=== PATIENT | female | born 1985 | race Asian ===

== ENCOUNTER 2016-08-07 02:23 | Inpatient (IN) | payer SELFPAY ==
[~2016-08-07] VITALS: Ht 157.5 cm; Wt 71.7 kg
[2016-08-07] MEDS ORDERED: NALBUPHINE HYDROCHLORIDE 10 MG/ML VIAL IVP PRN (02:45)
[2016-08-07] MEDS ORDERED: LACTATED RINGERS 500 ML IV ONE (02:45)
[2016-08-07] MEDS ORDERED: PROMETHAZINE 25 MG/ML VIAL IVP PRN (02:45)
[2016-08-07] MEDS ORDERED: AMPICILLIN 2,000 MG in NACL 0.9% MINI-BAG PLUS 100 ML IV SCH (02:45)
[2016-08-07] MEDS ORDERED: OXYTOCIN 10 UNITS/ML VIAL IM SCH (02:45)
[2016-08-07] MEDS ORDERED: IRON65TA11 PO (02:45)
[2016-08-07] MEDS ORDERED: METHYLERGONOVINE 0.2 MG/ML AMP IM PRN ×2 (02:45→07:10)
[2016-08-07] MEDS ORDERED: CARBOPROST 250 MCG/ML AMP IM PRN (02:45)
[2016-08-07] MEDS: LACTATED RINGERS 1,000 ML IV SCH ×2 (03:07→04:09)
[2016-08-07] MEDS ORDERED: AMPICILLIN 2,000 MG VIAL ONE (03:10)
[2016-08-07 03:21] LABS: BASOPHILS # (AUTO) 0.2 K/uL (0.00-0.22); BASOPHILS % (AUTO) 1.4 % (0.0-2.0); EOSINOPHILS # (AUTO) 0.3 K/uL (0-0.4); EOSINOPHILS % (AUTO) 2.2 % (0.0-4.0); HEMATOCRIT 38.1 % (36-48); HEMOGLOBIN 12.2 g/dL (12.0-16.0); LYMPHOCYTES # (AUTO) 2.6 K/uL (2.5-16.5); MEAN CORPUSCULAR HEMOGLOBIN 28 pg (27-31); MEAN CORPUSCULAR HGB CONC 32 g/dL (33-37); MEAN CORPUSCULAR VOLUME 88 fL (80-94); MONOCYTES # (AUTO) 0.7 K/uL (0.8-1.0); MONOCYTES % (AUTO) 5.8 % (1.7-9.3); NEUTROPHILS % (AUTO) 70.6 % (42.2-75.2); PLATELET COUNT (AUTO) 231 K/uL (140-450); RED BLOOD CELL COUNT(AUTO) 4.32 MIL/uL (4.20-5.40); RED CELL DISTRIBUTION WIDTH 20.1 % (11.6-13.7); WHITE BLOOD COUNT (AUTO) 12.8 K/uL (4.8-10.8)
[2016-08-07 03:25] VITALS: BP 110/70
[2016-08-07 03:32] LABS: ANION GAP 13.5 (8-16); CALCIUM 8.9 mg/dL (8.5-10.1); CARBON DIOXIDE 24.3 mmol/L (21-32); CREATININE 0.6 mg/dL (0.6-1.3); POTASSIUM 3.8 mmol/L (3.5-5.1)
[2016-08-07] MEDS ORDERED: ROPIVACAINE 0.2%/NS PREMIX 250 ML EPI ONE (03:37)
[2016-08-07 03:41] LABS: HIV RAPID SCREEN NON-REACTIVE (NON REACTIV)
[2016-08-07 03:43] LABS: ALBUMIN 2.6 g/dL (3.4-5.0); TOTAL BILIRUBIN 0.5 mg/dL (0.0-1.0); TOTAL PROTEIN, SERUM 6.5 g/dL (6.4-8.2)
[2016-08-07] MEDS ORDERED: ROPIVACAINE 0.2%/NS PREMIX 250 ML EPI SCH (03:50)
[2016-08-07] MEDS ORDERED: OXYTOCIN 20 UNITS/LR PREMIX 1,000 ML IV SCH (04:00)
[2016-08-07] MEDS ORDERED: OXYTOCIN 20 UNITS/LR PREMIX 1,000 ML IV ONE (06:09)
[2016-08-07] MEDS ORDERED: AMPICILLIN 1,000 MG VIAL ONE (06:20)
[2016-08-07 06:29] LABS: APPEARANCE,URINE CLEAR (CLEAR); BILIRUBIN,URINE NEGATIVE (NEGATIVE); BLOOD, URINE 3+ (NEGATIVE); COLOR,URINE YELLOW (YELLOW); LEUKOCYTE ESTERASE ,URINE NEGATIVE (NEGATIVE); NITRITE, URINE NEGATIVE (NEGATIVE); PH,URINE 6.5 (5.0-9.0); PROTEIN,URINE NEGATIVE (NEGATIVE); UGLUCOSE NEGATIVE (NEGATIVE); UROBILINOGEN,URINE 0.2 EU/dL (0.2 - 1)
[2016-08-07] MEDS ORDERED: OXYTOCIN 10 UNITS/ML VIAL ONE (06:57)
[2016-08-07 07:02] LABS: RAPID PLASMA REAGIN NON-REACTIVE (Non Reactiv)
[2016-08-07 07:08] LABS: BACTERIA,URINE None Seen /HPF (None Seen); RBC,URINE 20-50 /HPF (0-5); SQUAMOUS EPITHELIAL CELL,UR 0-3 (FEW) /LPF (0-3 (FEW)); WBC,URINE 0-5 (RARE) /HPF (0-5)
[2016-08-07] MEDS ORDERED: IBUPROFEN 800 MG TAB PO PRN (07:10)
[2016-08-07] MEDS ORDERED: BENZOCAINE/MENTHOL 20%-0.5% 60 GM CAN TP PRN (07:10)
[2016-08-07] MEDS ORDERED: TEMAZEPAM 15 MG CAP PO PRN (07:10)
[2016-08-07] MEDS ORDERED: MEASLES, MUMPS, AND RUBELLA 1 VIAL SQVAC PRN (07:10)
[2016-08-07] MEDS ORDERED: HYDROcodone/APAP 5/325 MG 1 TAB TAB PO PRN (07:10)
[2016-08-07] MEDS ORDERED: WITCH HAZEL 40 PAD PACKAGE TP PRN (07:10)
[2016-08-07] MEDS ORDERED: OXYTOCIN 10 UNITS/ML VIAL IM PRN (07:10)
[2016-08-07] MEDS ORDERED: oxyCODONE/APAP 5/325 MG 1 TAB TAB PO PRN (07:10)
[2016-08-07] MEDS ORDERED: AMPICILLIN 1,000 MG in NACL 0.9% MINI-BAG PLUS 50 ML IV SCH (08:00)
--- NOTE | 2016-08-07 09:05 | NUR ---
PATIENT HAS BEEN SCREENED AND CATEGORIZED LOW NUTRITION RISK. PATIENT WILL BE SEEN WITHIN 7 DAYS OF ADMISSION. 08/13/[address]
[2016-08-07] MEDS ORDERED: DOCUSATE SOD/SENNA 50/8.6 MG 1 TAB PO SCH (21:00)
[2016-08-08 06:12] LABS: HEMATOCRIT 33.1 % (36-48); HEMOGLOBIN 10.7 g/dL (12.0-16.0)
== END 2016-08-08 16:10 | disposition home or self-care (01) | DRG 775 ==
LOC: MLD 02:23 → MFCC 11:15
PROVIDERS: ADMIT Obstetrics & Gynecology; ATTEND Obstetrics & Gynecology
PROC: 10D07Z6 Extraction of Products of Conception, Vacuum, Via Natural or Artificial Opening (ICD-10-PCS; principal; 2016-08-07)
PROC: 0W8NXZZ Division of Female Perineum, External Approach (ICD-10-PCS; 2016-08-07)
PROC: 00HU33Z Insertion of Infusion Device into Spinal Canal, Percutaneous Approach (ICD-10-PCS; 2016-08-07)
PROC: 3E0R3CZ (ICD-10-PCS; 2016-08-07)
PROC: 3E0234Z Introduction of Serum, Toxoid and Vaccine into Muscle, Percutaneous Approach (ICD-10-PCS; 2016-08-08)
PROC: 3E0234Z Introduction of Serum, Toxoid and Vaccine into Muscle, Percutaneous Approach (ICD-10-PCS; 2016-08-08)
DX: O80 Encounter for full-term uncomplicated delivery (principal); Z37.0 Single live birth; Z3A.39 39 weeks gestation of pregnancy; Z23 Encounter for immunization
CPT/HCPCS: 36415; 51702; 80053; 81001; 85018; 85025; 86592; 86886; 86900; 86901; 87340; 90707; 90715; J0290; J2590; J2795; J7120